=== PATIENT | female | born 1945 | race Caucasian/White ===

== ENCOUNTER 2017-05-20 17:47 | Inpatient (IN) | payer OTHER ==
[~2017-05-20] VITALS: Ht 172.7 cm; Wt 113.0 kg
[2017-05-20 19:04] LABS: PLATELET COUNT 318 x10^3mcL (130-400); RED CELL DISTRIBUTION WIDTH 13.5 % (11.5-14.5)
[2017-05-20 19:18] LABS: CALCIUM 9.2 mg/dL (8.5-10.1); CARBON DIOXIDE 23.5 mmol/L (21-32); CHLORIDE SERUM 99 mmol/L (98-107); CREATININE SERUM 1.1 mg/dL (0.6-1.0); GLUCOSE SERUM 161 mg/dL (74-106); POTASSIUM SERUM 3.7 mmol/L (3.5-5.1); SODIUM SERUM 132 mmol/L (136-145)
[2017-05-20 19:19] LABS: BAND NEUTROPHIL 3 % (0-10); METAMYELOCTE 1 % (0-2); MONOCYTE 7 % (0-7); SEGMENTED NEUTROPHILS 78 % (37-75)
[2017-05-20 19:20] LABS: rbc morphology (normal/abnorm) NORMAL (NORMAL)
[2017-05-20 19:21] LABS: PLATELET MORPHOLOGY PLATELETS NORMAL
[2017-05-20 19:23] LABS: ALBUMIN 3.6 g/dL (3.4-5.0); ALKALINE PHOSPHATASE 100 U/L (46-116); ALT/SGPT 23 U/L (14-59); AST/SGOT 17 U/L (15-37); TOTAL PROTEIN, SERUM 7.6 g/dL (6.4-8.2)
[2017-05-20] MEDS ORDERED: SPIRIVA18 MC1 INH (20:01)
[2017-05-20] MEDS ORDERED: LISINOPRIL2.5 MG (20:01)
[2017-05-20] MEDS ORDERED: AMLODIPINE BES2.5 M1 PO (20:01)
[2017-05-20 20:22] LABS: MAGNESIUM 1.6 mg/dL (1.8-2.4); PHOSPHOROUS 2.7 mg/dL (2.5-4.9)
[2017-05-20 20:33] VITALS: BP 127/67
[2017-05-20 20:34] LABS: T3 TOTAL 0.9 ng/mL
[2017-05-20 20:44] LABS: FREE T4 1.12 ng/dL (0.76-1.46); FREE THYROXINE INDEX 2.6 ug/dL (1.4-4.5); T4(THYROXINE) 7.7 ug/dL (4.7-13.3)
[2017-05-20 22:27] VITALS: BP 127/67
[2017-05-21 05:01] LABS: UA SPECIFIC GRAVITY >=1.030 (1.005-1.035); microscopic required? YES; urine erythrocyte 2+ (NEGATIVE)
[2017-05-21 05:09] LABS: AMPHETAMINE QUAL UR NONE DETECTED (NEG <=1000)
[2017-05-21 05:30] VITALS: BP 99/55
[2017-05-21 06:09] LABS: PLATELET COUNT 301 x10^3mcL (130-400); RED CELL DISTRIBUTION WIDTH 13.6 % (11.5-14.5)
[2017-05-21 06:59] LABS: CALCIUM 8.9 mg/dL (8.5-10.1); CHLORIDE SERUM 99 mmol/L (98-107); CHOLESTEROL 133 mg/dL (<200); CHOLESTEROL/HDL RATIO 2.7; CREATININE SERUM 1.3 mg/dL (0.6-1.0); GLUCOSE SERUM 150 mg/dL (74-106); HDL CHOLESTEROL 49 mg/dL (40-60); MAGNESIUM 2.4 mg/dL (1.8-2.4); PHOSPHOROUS 2.9 mg/dL (2.5-4.9); POTASSIUM SERUM 3.5 mmol/L (3.5-5.1); SODIUM SERUM 135 mmol/L (136-145); TRIGLYCERIDES 67 mg/dL (<150)
[2017-05-21 09:14] VITALS: BP 119/45
[2017-05-21 11:56] LABS: BAND NEUTROPHIL 1 % (0-10); BASOPHIL 0 % (0-2); MONOCYTE 2 % (0-7); SEGMENTED NEUTROPHILS 91 % (37-75)
[2017-05-21 11:57] LABS: PLATELET MORPHOLOGY PLATELETS NORMAL; rbc morphology (normal/abnorm) ABNORMAL (NORMAL)
[2017-05-21 13:00] VITALS: BP 114/51
[2017-05-21 17:10] VITALS: BP 98/49
[2017-05-21 20:37] VITALS: BP 140/50
[2017-05-22 06:11] LABS: BASOPHIL % 0.3 % (0-2); PLATELET COUNT 306 x10^3mcL (130-400); RED CELL DISTRIBUTION WIDTH 13.4 % (11.5-14.5)
[2017-05-22 06:41] LABS: CALCIUM 8.9 mg/dL (8.5-10.1); CARBON DIOXIDE 24.1 mmol/L (21-32); CHLORIDE SERUM 101 mmol/L (98-107); CREATININE SERUM 1.1 mg/dL (0.6-1.0); GLUCOSE SERUM 127 mg/dL (74-106); MAGNESIUM 2.1 mg/dL (1.8-2.4); POTASSIUM SERUM 3.5 mmol/L (3.5-5.1); SODIUM SERUM 136 mmol/L (136-145)
[2017-05-22 06:44] VITALS: BP 106/50
[2017-05-22] MEDS ORDERED: LAC PO (07:38)
[2017-05-22 09:15] VITALS: BP 146/48
[2017-05-22 09:37] VITALS: BP 106/50
[2017-05-22 13:52] VITALS: BP 134/62
[2017-05-22] MEDS ORDERED: BACOINT TOP (17:20)
[2017-05-22] MEDS ORDERED: BACTRIM DS1 TAB PO (17:30)
[2017-05-22 18:02] VITALS: BP 134/62
== END 2017-05-22 18:35 | disposition home health service (06) | DRG 871 ==
LOC: ED 17:47 → DU 19:35
PROVIDERS: Emergency Medicine; ADMIT Family Medicine
DX: A41.01 Sepsis due to Methicillin susceptible Staphylococcus aureus (principal); N17.0 Acute kidney failure with tubular necrosis; L03.114 Cellulitis of left upper limb; N39.0 Urinary tract infection, site not specified; E87.1 Hypo-osmolality and hyponatremia; R65.20 Severe sepsis without septic shock; S61.452A Open bite of left hand, initial encounter; E83.42 Hypomagnesemia; J44.9 Chronic obstructive pulmonary disease, unspecified; I34.0 Nonrheumatic mitral (valve) insufficiency; I36.1 Nonrheumatic tricuspid (valve) insufficiency; I37.1 Nonrheumatic pulmonary valve insufficiency; I10 Essential (primary) hypertension; M19.042 Primary osteoarthritis, left hand; R80.9 Proteinuria, unspecified; E05.90 Thyrotoxicosis, unspecified without thyrotoxic crisis or storm; E66.9 Obesity, unspecified; Z66 Do not resuscitate; Z68.37 Body mass index [BMI] 37.0-37.9, adult; Z87.891 Personal history of nicotine dependence; W54.0XXA Bitten by dog, initial encounter; Y92.018 Other place in single-family (private) house as the place of occurrence of the external cause
CPT/HCPCS: 82962; 83880; 84439; 90715; 94150; J1956; J2270; J2405; J2543; J3475; J3490; J7030; J7620

== ENCOUNTER 2017-07-02 02:18 | Inpatient (IN) | payer OTHER ==
[~2017-07-02] VITALS: Ht 172.7 cm; Wt 104.3 kg
[~2017-07-02 02:18] MED LIST: AMLODIPINE BES2.5 M1 PO; BACOINT TOP; BACTRIM DS1 TAB PO; LAC PO; LISINOPRIL2.5 MG; SPIRIVA18 MC1 INH
--- NOTE | 2017-07-02 02:59 | NUR ---
DR LARSON AT BEDSIDE FOR MSE.
--- NOTE | 2017-07-02 03:28 | NUR ---
MEDICATION ADMINISTERED PER MD ORDER, PT VERBALIZED UNDERSTANDING OF MEDICATION PRIOR TO ADMINISTRATION.
[2017-07-02 03:41] LABS: UA SPECIFIC GRAVITY >=1.030 (1.005-1.035); microscopic required? YES; urine erythrocyte 2+ (NEGATIVE)
--- NOTE | 2017-07-02 03:41 | NUR ---
PT TO CT VIA MANISH
[2017-07-02 03:45] LABS: BASOPHIL % 0.2 % (0-2); PLATELET COUNT 349 x10^3mcL (130-400); RED CELL DISTRIBUTION WIDTH 13.5 % (11.5-14.5)
[2017-07-02 03:47] LABS: CALCIUM 9.5 mg/dL (8.5-10.1); CARBON DIOXIDE 23.4 mmol/L (21-32); CHLORIDE SERUM 103 mmol/L (98-107); CREATININE SERUM 1.1 mg/dL (0.6-1.0); GLUCOSE SERUM 174 mg/dL (74-106); POTASSIUM SERUM 4.4 mmol/L (3.5-5.1); SODIUM SERUM 136 mmol/L (136-145)
[2017-07-02 03:52] LABS: ALBUMIN 3.5 g/dL (3.4-5.0); ALKALINE PHOSPHATASE 72 U/L (46-116); ALT/SGPT 24 U/L (14-59); AST/SGOT 16 U/L (15-37); BILIRUBIN TOTAL 0.4 mg/dL (0.20-1.00); LIPASE 131 IU/L (73-393); TOTAL PROTEIN, SERUM 7.2 g/dL (6.4-8.2)
--- NOTE | 2017-07-02 03:52 | NUR ---
PT RETURNED FROM CT VIA RAINSWORTH, AWAKE AND ALERT.
[2017-07-02] MEDS ORDERED: ZESTRIL20 MG PO (04:07)
[2017-07-02] MEDS ORDERED: SPIRIVA18 MC1 INH (04:08)
[2017-07-02] MEDS ORDERED: BREO ELLIPTA1 POW IH (04:08)
[2017-07-02] MEDS ORDERED: NOR10 PO (04:08)
--- NOTE | 2017-07-02 04:24 | NUR ---
REPORT GIVEN TO ED, RECEIVING RN ON TELE.
[2017-07-02 04:51] LABS: MAGNESIUM 1.9 mg/dL (1.8-2.4); PHOSPHOROUS 2.5 mg/dL (2.5-4.9)
[2017-07-02 05:05] VITALS: BP 153/66
[2017-07-02 05:32] VITALS: BP 148/75
--- NOTE | 2017-07-02 05:58 | NUR ---
AMDITTED A 72 YEAR OLD FEMALE WITH C/O OF LT FLANK PAIN WHICH RADIATES TO THE LT LOWER ABDO,PT CAME TO THE FLOOR VIA [facility]ER[facility] AND WAS ACCOMPANIED BY THE NURSE AND THE HOSPITAL PERSONNEL,PT WAS RECIEVED TO THE BED AND WAS MADE COMFORTABLE IN BED.ON INITAIL ASSESSMENT PATIENT IS AAO REG RESP NO SOB,ABDO IS SOFT WITH ACTIVE BOWEL SOUNDS,PT MOVES ALL EXTRE WITH STEADY GAIT TO THE BATHROOM,HAD HL TO THE LT FOREARM WITH THE SITE PATENT AND INTACT,PT WAS ORIENTED TO THE BATHROOM,ROOM AND THE TELE MONITOR AND VERBALIZED UNDERSTANDING,NO PAIN REPORTED AT THIS,CALL LIGHT EASY REACHED AND WILL CONTINUE TO MONITOR.
--- NOTE | 2017-07-02 06:22 | NUR ---
PT RESTING AT THIS TIME,WILL CONTINUE TO MONITOR.
--- NOTE | 2017-07-02 07:30 | NUR ---
ALERT AND ORIENTED. BREATHING FREELY ON RA. TELE # 19 NSR. NS INFUSING 180 CC HOUR. INDEPENDENT W ADL'S. WEARING SCD'S. ALL URINE BEING STRAINED. 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 HAS DISCOMFORT WITH URINATION. LEFT FLANK PAIN WHEN PRESENT IS ACHE. CALL LIGHT WITHIN REACH.
--- NOTE | 2017-07-02 08:53 | NUR ---
RETURNED TELE # 19 [facility]. PT NOW M/S PT.
[2017-07-02 09:37] VITALS: BP 159/66
--- NOTE | 2017-07-02 11:11 | NUR ---
Danny FROM DR. VARMA INQUIRING ABOUT PLACACEMENT OF LEFT NEPHROSTOMY TUBE. INFORMED RADIOLOGIST WILL BE IN TODAY APPROXIMATELY 1100. DR. VARMA SAID HE WOULD BE IN TO SEE PT TODAY.
[2017-07-02 11:53] LABS: AMPHETAMINE QUAL UR NONE DETECTED (NEG <=1000)
--- NOTE | 2017-07-02 12:15 | NUR ---
CONSENTS SIGNED FOR LEFT NEPHROSTOMY TUBE PLACMENT. BRENDAN WIPES GIVEN IV HL'D.
--- NOTE | 2017-07-02 13:12 | NUR ---
PT LEFT FLOOR FOR LEFT NEPHROSTOMY TUBE INSERTION.
--- NOTE | 2017-07-02 15:04 | NUR ---
BACK FROM LEFT NEPHROSTOMY PLACEMENT. PT IS BABBLING AND INCOHERENT. T 100.3. COOLING MEASURES PT IS UNABLE TO SWALLOW ORAL MEDS AT THIS TIME. RESTARTED IV FLUIDS. NEPHROSTOMY DRAINING REDDISH OPAQUE FLUID. CALLLIGHT WITHIN REACH. BED ALARM ON. BED IN LOW POSITION.
--- NOTE | 2017-07-02 16:10 | NUR ---
PT CONFUSED. GOT UP OUT OF BED TOOK OFF GOWN AND TRIED TO GET TO BR WITHOUT CALLING FOR HELP. BED ALARM WAS ON. ASSISTED PT TO BR. VOIDED. ASSISTED BACK TO BED. INSTRUCTED TO USE CALL LIGHT FOR ASSIST. NOT TO GET OUT OF BED WITHOUT CALLING FOR HELP.
--- NOTE | 2017-07-02 17:33 | NUR ---
PT HAS RED RAISED RED BLOTCHY AREAS TO LOWER EXTS. ALSO C/O ITCHINESS. ADMIN BENADRYL 25 MG IV.
--- NOTE | 2017-07-02 18:35 | NUR ---
BENADRYL HELPFUL FOR ITCHINESS TO LOWER EXTS. DILAUDID HELPFUL FOR LEFT FLANK AND ABD PAIN UNTIL PT BEGINS TO MOVE AROUND. VOIDED SINCE PROCEEDURE. DRESSING TO LEFT NEPHROSTOMY SITE CDI. NEPHROSTOMY DRAINED 125 CC BLOODY OPAQUE FLUID. NS INFUSING 180 CC HOUR. CONTINUE TO STRAIN ALL URINE. ROCEPHIN IV ABX. CALL LIGHT WITHIN REACH. BED ALARM ON. HOB ELEVATED. BED IN LOW POSITION.
--- NOTE | 2017-07-02 19:57 | NUR ---
REC'D REPORT FROM DAY NURSE. AAOX3-4. LAYING IN BED WITH THE HOB ELEVATED. ABLE TO MAKE NEEDS KNOWN. DENIES PAIN AT THIS TIME. NO DISTRESS NOTED. NO TELE, MED SURG PT. LUNG SOUND CTA. ON RA. BREATHING EVEN AND UNLABORED. ABD IS ROUND AND ACTIVE. 1+ EDEMA NOTED. BED IN LOWEST POSITION. BED ALARM ON. CALL LIGHT WITHIN REACH. IV ACCESS INTACT AND INFUSING WELL. WILL PROCEED TO THE PLAN OF CARE.
[2017-07-02 21:06] VITALS: BP 139/39
--- NOTE | 2017-07-02 23:46 | NUR ---
ROUNDS MADE, PT IS SLEEPING WITH EYES CLOSED. NO DISTRESS NOTED. WILL CONT TO MONITOR.
--- NOTE | 2017-07-03 03:56 | NUR ---
ROUNDS MADE, PT IS ASLEEP AND RESTING WELL. NO DISTRESS NOTED. DR ESCALONA MADE AWARE OF PT'S RED URINE OUTPUT AND L NEPHROSTOMY DRAINAGE OF DARD RED URINE. WILL CONT TO MONITOR.
--- NOTE | 2017-07-03 05:18 | NUR ---
ROUNDS MADE, PT IS AWAKE AND SEATING UP IN BED. WILL CONT TO MONITOR.
[2017-07-03 05:46] VITALS: BP 166/50
[2017-07-03 05:55] LABS: PLATELET COUNT 271 x10^3mcL (130-400); RED CELL DISTRIBUTION WIDTH 13.6 % (11.5-14.5)
[2017-07-03 06:28] LABS: CALCIUM 8.3 mg/dL (8.5-10.1); CARBON DIOXIDE 20.2 mmol/L (21-32); CHLORIDE SERUM 108 mmol/L (98-107); CREATININE SERUM 1.3 mg/dL (0.6-1.0); GLUCOSE SERUM 143 mg/dL (74-106); MAGNESIUM 1.6 mg/dL (1.8-2.4); PHOSPHOROUS 2.7 mg/dL (2.5-4.9); POTASSIUM SERUM 4.1 mmol/L (3.5-5.1); SODIUM SERUM 137 mmol/L (136-145)
--- NOTE | 2017-07-03 06:43 | NUR ---
PT SLEPT PERIODICALLY THROUGHOUT THE SHIFT. DENIES PAIN AT THIS TIME. NO DISTRESS NOTED. ALL NEEDS MET AND ATTENDED TO. L NEPHROSTOMY IN PLACE AND DRAINING VIA GRAVITY. IV ACCESS INTACT AND PATENT INFUSING WELL. WILL ENDORSE ALL CARE TO ONCOMING NURSE.
--- NOTE | 2017-07-03 07:30 | NUR ---
AWAKE AND ORIENTED. C/O BEING A LITTLE DIZZY. ASSISTED TO BR. NEPHROSTOMY TUBING HAD COME LOOSE. REATTACHED AND EXPLAINED TO PT SHE NEEDS TO BE CAREFUL WITH POSITION OF TUBING SO SHE WONT PULL IT LOOSE AGAIN. PAIN MANAGEABLE TO LEFT NEPHROSTOMY SITE. DILAUDID HELPFUL ALTHOUGH IT CAUSES DIZZINESS. BREATHING FREELY ON RA. BLOOD TINGED OPAQUE URINE IN NEPHROSTOMY BAG. IV IS LEAKING AND WILL NEED TO BE REINSERTED. MED SURG PT. CALL LIGHT WITHIN REACH.
[2017-07-03 09:29] VITALS: BP 125/47
[2017-07-03 10:24] LABS: BAND NEUTROPHIL 22 % (0-10); MONOCYTE 9 % (0-7); SEGMENTED NEUTROPHILS 53 % (37-75); rbc morphology (normal/abnorm) NORMAL (NORMAL)
--- NOTE | 2017-07-03 16:28 | NUR ---
PT SITTING UP IN CHAIR AT BEDSIDE. COMFORTABLE AT THIS TIME. URINE IN NEPHROSOTOMY BAG MUCH CLEARER THAN YESTERDAY. NO LONGER OPAQUE.
--- NOTE | 2017-07-03 17:52 | NUR ---
Nutrition Note: Pt was put as nursing trigger: appears underweight/malnourished. Pt BMI:35kg/m2 Dx:Kidney stone with UTI PMHX: COPD, HTN and Prediabetes Ht: 68in. 5'8" Wt:230#, 104.32kg BMI: 35 kg/m2 Labs: (07/03) BH, Cr:1.3H, BUN:22H, WBC:20.3H, H/H:11.8/35L Current Diet orde: CCHO PO intake: (07/03) B:100% Skin: red rash all over torso and lower extremities Les:21 Pt found with Severe sepsis secondary to Obstructing left UPJ calculus with hydronephrosis and UTI, VMN with proteinuria likely secondary to renal calculi and UTI and Hematuria likely secondary to renal calculus, per H&P. Review indicates pt is a moderate risk at this time. RD to follow up per nutrition care policy and standards. Please contact RD should concerns arise earlier than expected follow up date. Pt witll be F/U as moderate risk:07/05-
[2017-07-03 18:13] VITALS: BP 121/68
--- NOTE | 2017-07-03 18:57 | NUR ---
SITTING UP IN CHAIR. BREATHING FREELY. NEPHROSTOMY BAG EMPTIED WITH 150 CC CLOUDY BLOOD TINGED URINE. NO BLOOD NOTED AFTER VOIDS. NO PAIN MEDS ADMINTHIS SHIFT. NS INFUISNG 180 CC HOUR. ROCEPHIN IV ABX. TYLENOL ADMIN FOR TEMP 100.5. CALL LIGHT WITHINI REACH.
--- NOTE | 2017-07-03 19:20 | NUR ---
PT SITTING IN CHAIR, AOX4, NO COMPLAINTS OF PAIN, NO S/S OF DISTRESS, RASH ON ABD, STATED IT ITCHES AT TIMES, NO OTHER COMPLAINTS. WILL CONTINUE TO MONITOR
--- NOTE | 2017-07-03 19:23 | NUR ---
RECEIVED REPORT FROM TYESHA VEGA, WILL ENDORSE CARE
[2017-07-03 21:21] VITALS: BP 102/54
--- NOTE | 2017-07-03 21:30 | NUR ---
DR ESCALONA AT BEDSIDE, EXAMINING RASH, CONTINUE TO MONITOR RASH,
--- NOTE | 2017-07-04 01:00 | NUR ---
PT IN BED SLEEPING, NO S/S OF DISTRESS WILL CONTINUE TO MONITOR
[2017-07-04 06:00] VITALS: BP 96/48
[2017-07-04 07:22] LABS: BASOPHIL % 0.2 % (0-2); PLATELET COUNT 271 x10^3mcL (130-400); RED CELL DISTRIBUTION WIDTH 13.5 % (11.5-14.5)
[2017-07-04 07:40] LABS: CALCIUM 8.5 mg/dL (8.5-10.1); CARBON DIOXIDE 21.7 mmol/L (21-32); CHLORIDE SERUM 107 mmol/L (98-107); CREATININE SERUM 1.1 mg/dL (0.6-1.0); GLUCOSE SERUM 126 mg/dL (74-106); MAGNESIUM 1.8 mg/dL (1.8-2.4); PHOSPHOROUS 1.7 mg/dL (2.5-4.9); POTASSIUM SERUM 3.7 mmol/L (3.5-5.1); SODIUM SERUM 136 mmol/L (136-145)
--- NOTE | 2017-07-04 07:40 | NUR ---
RECEIVED THE PATIENT AWAKE AND ORIENTED TO PERSON, PLACE AND TIME. PATIENT DENIED SHORTNESS OF BREATH, NAUSEA/VOMITING OR PAIN AT THIS TIME. IVF NS VIA H/L TO LFA. LEFT NEPHROSTOMY BAG DRAINS VIKASH URINE. CALL LIGHT WITHIN REACH. THE PATIENT WAS SITTING IN THE CHAIR NEXT TO THE BED.
--- NOTE | 2017-07-04 09:30 | NUR ---
DR. BELTRAN-RESIDENT WAS AT BEDSIDE EXPLAINING THE CARE PLAIN TO THE PATIENT.
[2017-07-04 10:37] VITALS: BP 144/58
[2017-07-04 13:17] LABS: BASOPHIL % 0.3 % (0-2); PLATELET COUNT 285 x10^3mcL (130-400); RED CELL DISTRIBUTION WIDTH 13.7 % (11.5-14.5)
--- NOTE | 2017-07-04 15:22 | NUR ---
Went into pt's room with DR. Danielle and Dr. Lemus. Patient stated she had some concerns about going home, however, Dr. Danielle explained to her that her WBC is downtrending, she will be sent home on antibiotics. Her vitals are stable. She agreed to plan of discharge and agrees she will feel better at home and more comfortable. 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 She will follow up with PCP on friday as well as concrete curer appointment as well. She is agreeable with discharge plans and has no more concerns or objections.
[2017-07-04] MEDS ORDERED: KEFLEX500 M1 PO (15:26)
[2017-07-04] MEDS ORDERED: BD LACTINEX1.4 MG PO (15:27)
[2017-07-04 15:57] VITALS: BP 144/58
--- NOTE | 2017-07-04 16:28 | NUR ---
DISCHARGE INSTRUCTION WAS IMPLEMENTED TO THE PATIENT. ALL QUESTIONS WERE ANSWERED AND THE PATIENT VERBALIZED UNDERSTANDING. THE PATIENT WAS INSTRUCTED HOW TO EMPTY THE NEPHROSTOMY BAG AND FOLLOW UP WITH DR. VARMA OUT PATIENT. THE PATIENT IS WAITING FOR A RIDE.
--- NOTE | 2017-07-04 16:43 | NUR ---
DR. BUSTAMANTE VERBALIZED, "KEEP THE NEPHROSTOMY TUBE IN PLACE AND THE PATIENT FOLLOW UP WITH DR. VARMA." REPORT WAS GIVEN TO TYESHA VAZQUEZ, WHO WILL TAKE OVER CARE OF THE PATIENT.
[2017-07-04 17:42] VITALS: BP 116/63
== END 2017-07-04 18:20 | disposition home or self-care (01) | DRG 853 ==
LOC: ED 02:18 → DU 04:03 → MU 04:03 → DU 05:08 → MU 08:39
PROVIDERS: Emergency Medicine; Radiology Diagnostic Radiology; ADMIT Family Medicine
PROC: BT12YZZ Fluoroscopy of Left Kidney using Other Contrast (ICD-10-PCS; 2017-07-02)
PROC: 0T143JD Bypass Left Kidney Pelvis to Cutaneous with Synthetic Substitute, Percutaneous Approach (ICD-10-PCS; principal; 2017-07-02 13:30)
DX: A41.9 Sepsis, unspecified organism (principal); N17.0 Acute kidney failure with tubular necrosis; N39.0 Urinary tract infection, site not specified; N13.0 Hydronephrosis with ureteropelvic junction obstruction; L03.114 Cellulitis of left upper limb; W54.0XXA Bitten by dog, initial encounter; N20.0 Calculus of kidney; R65.20 Severe sepsis without septic shock; E83.42 Hypomagnesemia; J44.9 Chronic obstructive pulmonary disease, unspecified; E05.80 Other thyrotoxicosis without thyrotoxic crisis or storm; R31.9 Hematuria, unspecified; R80.9 Proteinuria, unspecified; R73.03 Prediabetes; E83.39 Other disorders of phosphorus metabolism; D64.9 Anemia, unspecified; M19.042 Primary osteoarthritis, left hand; I10 Essential (primary) hypertension; E66.9 Obesity, unspecified; Z68.35 Body mass index [BMI] 35.0-35.9, adult; Z79.4 Long term (current) use of insulin; Y93.89 Activity, other specified; Y92.018 Other place in single-family (private) house as the place of occurrence of the external cause
CPT/HCPCS: 83880; 94150; C1769; C1884; C1893; J0696; J1200; J1885; J2001; J2250; J2270; J2405; J3010; J7030; J7040; J7620; J7633; Q0092; Q9967